=== PATIENT | female | born 1970 | race Caucasian/White ===

== ENCOUNTER → 2020-10-31 | Day surgery (SDC) | payer OTHER ==
[~2020-10-31] VITALS: Ht 165.1 cm; Wt 67.7 kg
[~2020-10-31] MED LIST: LIDOCAINE/PF 2% 5 ML VIAL IM ONE; OXYGEN THERAPY IH SCH; PROPOFOL 1% 20 ML VIAL IVP ONE; SODIUM CHLORIDE 0.9% 1,000 ML IV ONE; SODIUM CHLORIDE 0.9% 1,000 ML ONE
[2020-10-31 09:03] LABS: COVID AG,FIA SOURCE NASOPHARYNGEAL
== END | disposition home or self-care (01) ==
LOC: SURGERY 08:00
PROVIDERS: ATTEND Specialist
DX: R13.10 Dysphagia, unspecified (principal); K22.10 Ulcer of esophagus without bleeding; K22.8 Other specified diseases of esophagus; K44.9 Diaphragmatic hernia without obstruction or gangrene; Z90.710 Acquired absence of both cervix and uterus; Z79.899 Other long term (current) drug therapy
CPT/HCPCS: 43235; 87426; C9803; J2704; J3490; J7030

== ENCOUNTER 2021-01-03 12:27 | Day surgery (SDC) | payer OTHER ==
[2021-01-01 14:32] LABS: COVID AG,FIA SOURCE NASOPHARYNGEAL
[~2021-01-03 12:27] MED LIST changes: -LIDOCAINE/PF 2% 5 ML VIAL IM ONE; -OXYGEN THERAPY IH SCH; -PROPOFOL 1% 20 ML VIAL IVP ONE
[2021-01-03] MEDS ORDERED: PROPOFOL 1% 20 ML VIAL IVP ONE (12:28)
== END 2021-01-03 15:45 | disposition home or self-care (01) ==
LOC: SURGERY 12:27
PROVIDERS: ATTEND Internal Medicine Gastroenterology
DX: K21.00 Gastro-esophageal reflux disease with esophagitis, without bleeding (principal); K44.9 Diaphragmatic hernia without obstruction or gangrene; K22.10 Ulcer of esophagus without bleeding; Z98.890 Other specified postprocedural states; Z88.0 Allergy status to penicillin; Z91.013 Allergy to seafood; Z72.89 Other problems related to lifestyle; Z79.899 Other long term (current) drug therapy
CPT/HCPCS: 43239; 87426; 88305; 88312; 88313; C1769; C9803; J2704; J7030

== ENCOUNTER 2021-02-28 10:16 | Day surgery (SDC) | payer OTHER ==
[2021-02-27 10:24] LABS: COVID AG,FIA SOURCE NASOPHARYNGEAL
[~2021-02-28] VITALS: Ht 165.1 cm; Wt 72.3 kg
[~2021-02-28 10:16] MED LIST changes: -SODIUM CHLORIDE 0.9% 1,000 ML IV ONE
[2021-02-28] MEDS ORDERED: LIDOCAINE/PF 2% 5 ML VIAL IM ONE (10:17)
[2021-02-28] MEDS ORDERED: PROPOFOL 1% 20 ML VIAL IVP ONE (10:17)
[2021-02-28] MEDS ORDERED: SODIUM CHLORIDE 0.9% 1,000 ML IV ONE (12:00)
== END 2021-02-28 14:10 | disposition home or self-care (01) ==
LOC: SURGERY 10:16
PROVIDERS: ATTEND Internal Medicine Gastroenterology
DX: K22.10 Ulcer of esophagus without bleeding (principal); K22.2 Esophageal obstruction; K44.9 Diaphragmatic hernia without obstruction or gangrene; Z98.890 Other specified postprocedural states; Z88.0 Allergy status to penicillin; Z91.013 Allergy to seafood; Z90.710 Acquired absence of both cervix and uterus; Z90.721 Acquired absence of ovaries, unilateral; Z79.899 Other long term (current) drug therapy
CPT/HCPCS: 43239; 87426; 88305; 88312; C1769; C9803; J2704; J3490; J7030